=== PATIENT | female | born 1965 | race Caucasian/White ===

== ENCOUNTER → 2020-08-26 10:16 | Outpatient (BNVA) | payer MEDICARE, MEDICAID, SELFPAY | PROVIDERS: PCP Internal Medicine Addiction Medicine; Visit Provider Nurse Practitioner Family | DX: C95.90 Leukemia, unspecified not having achieved remission (principal); G89.29 Other chronic pain; K62.89 Other specified diseases of anus and rectum | CPT/HCPCS: 99202 ==